=== PATIENT | female | born 1980 | race Caucasian/White ===

== ENCOUNTER 2020-04-06 12:33 | Outpatient (CLI) | payer OTHER, SELFPAY ==
--- NOTE | ~2020-04-06 | XR_ITS ---
EXAMINATION: XR lumbar spine 2-3V DATE: 04/06/2020 13:18 INDICATION: Right hip pain. TECHNIQUE: 3 views of lumbar spine were obtained. COMPARISON: None. FINDINGS: There is 3 degrees dextrocurvature of thoracolumbar spine. Vertebral body heights and inter vertebral disc heights are normal. The facet joints are unremarkable. IMPRESSION: 1. No etiology for the patient's symptoms. Reviewed, dictated and finalized at location A.
--- NOTE | ~2020-04-06 | XR_ITS ---
EXAMINATION: XR hip RT min 2V DATE: 04/06/2020 13:18 INDICATION: Right hip pain. TECHNIQUE: 3 views of right hip were obtained. COMPARISON: None. FINDINGS: Bone alignment is normal. No acute fracture. There is an old healed subcapital fracture of right femoral neck. There are old pin tracks in proximal right femur. There is mild right hip osteoar thritis. IMPRESSION: 1. Mild right hip osteoarthritis. Reviewed, dictated and finalized at location A.
[2020-04-06 14:20] LABS: Hematocrit 37.9 % (37.0-47.0); Mean Corpuscular HGB Conc 34.3 g/dl (32-36); Mean Corpuscular Hemoglobin 30.8 pg (26-34); Mean Corpuscular Volume 89.8 fl (80-100); Mean Platelet Volume 10.2 fl (7.4-10.4); Platelet Count Result 200 k/mm3 (150-375); Red Blood Count 4.22 M/mm3 (4.2-5.4); Red Cell Distribution Width 12.3 % (11.5-14.5); White Blood Count 4.5 K/mm3 (4.5-10.0)
[2020-04-06 14:34] LABS: CRP < 0.5 mg/dL (<1.0)
[2020-04-06 15:02] LABS: Iron 84 ug/dL (37-170)
[2020-04-06 15:12] LABS: Percent Iron Saturation 35 % (20-50)
== END 2020-04-06 12:34 | disposition home or self-care (01) ==
PROVIDERS: PCP Emergency Medicine; Visit Provider Emergency Medicine
DX: E61.1 Iron deficiency (principal); M54.31 Sciatica, right side; M16.11 Unilateral primary osteoarthritis, right hip
CPT/HCPCS: 36415; 72100; 73502; 82728; 83540; 83550; 85027; 86140

== ENCOUNTER 2022-02-03 18:19 | Emergency (ER) | payer OTHER, SELFPAY ==
--- NOTE | ~2022-02-03 | XR_ITS ---
EXAM: XR hand RT min 3V HISTORY: 02/03/22 PORCEL[place] CANDLE FELL ONTOP OF HAND. PAIN. COMPARISON: None available FINDINGS: Normal mineralization. No fracture or dislocation. No lytic or blastic lesion. Joint space s maintained. No erosion or periosteal change. Soft tissues within normal limits. IMPRESSION: No acute osseous finding in the right hand. Reviewed, dictated and finalized at location K.
[2022-02-03 18:30] VITALS: BP 136/94; PULSE 72; RESP 18; TEMP 37.1; O2SAT 98
--- NOTE | 2022-02-03 19:07 | ED.UPPEXIN ---
HPI - Extremity Injury (Upper) General Chief Complaint: Extremity Injury, Upper Stated Complaint: Right Hand Injury Time Seen by Provider: 02/03/22 18:55 Source: patient, RN notes reviewed and old records reviewed Mode of arrival: ambulatory Limitations: no limitations History of Present Illness HPI narrative: 41-year-old female who presents to [facility] with complaints of injury to her right anterior arm and dorsal hand near first metacarpal region with some mild swelling. Patient states large porcelain candle came down off of the shelf and hit the top of her right hand with pain mainly to the first metacarpal region. Patient has stated pain with any movement of her right hand, right wrist has strong radial pulse,nails have brisk capillary refill.Ice applied toright hand for comfort measure. MD complaint: injury to: right, forearm and hand Onset (ago): minute(s) Place: home Related Data Home Medications Medication Instructions Recorded Confirmed buspirone 15 mg PO DAILY 02/03/22 02/03/22 tizanidine 4 mg PO DAILY 02/03/22 02/03/22 trazodone 150 mg PO DAILY 02/03/22 02/03/22 Allergies Allergy/AdvReac Type Severity Reaction Status Date / Time acetaminophen Allergy Unknown Hives / Verified 02/03/22 19:22 Red Face Review of Systems Review of Systems: CONSTITUTIONAL: Denies fever, chills, or sweats. EYES: Denies visual changes, redness, or discharge. ENT: Denies rhinorrhea, congestion, sore throat, or otalgia. CARDIOVASCULAR: Denies chest pain, palpitations, or edema. RESPIRATORY: Denies cough or dyspnea. GASTROINTESTINAL: Denies abdominal pain, nausea, vomiting, or diarrhea. GENITOURINARY: Denies dysuria or hematuria. SKIN: Denies rash or itching. MUSCULOSKELETAL: Denies back pain,pain to right hand, or myalgia. NEUROLOGIC: Denies headache, numbness, or weakness. PSYCHIATRIC:Positive for history of anxiety or depression. All systems reviewed & are unremarkable except as noted in HPI and below PMFSH Past Medical History Medical History Anxiety Encounter for tubal ligation Fusion of spine, cervical region C6-7 Hip fracture, right Surgical History Surgical History H/O shoulder surgery History of carpal tunnel release History of endometrial ablation History of right oophorectomy Previous section X2 Family History Family History Grandparent Family history of mental disorder Hypertension Family history of heart disease in male family member before age 55 Mother Family history of mental disorder Depression Father Hypertension Other Family history of cardiovascular disease Social History Social History Smoking status: Former smoker Alcohol intake: never Comments At time of signature, agree with nursing past medical, surgical, social and family history. There is no relevant family history pertinent to the presenting complaint Exam Narrative: GENERAL: Well-appearing, well-nourished, and in no acute distress. HEAD: Normocephalic, atraumatic. EYES: PERRLA and EOMI. ENT: Nares clear, no rhinorrhea or epistaxis. Mucous membranes moist.TM's normal with good light reflex, throat pink with no lesions or exudates or tonsil swelling NECK: Supple.no lymphadenopathy CHEST: Clear to auscultation. No respiratory distress. HEART: Regular rate and rhythm. No murmur heard. Normal peripheral pulses. ABDOMEN: Soft, nontender, nondistended, normal active bowel sounds. EXTREMITIES: Normal range of motion. No edema.Pain to dorsal aspect of right hand belowalong first metacarpal with sensation and circulation intact, increased pain with movement,minimal swelling noted. SKIN: Warm, dry, no rash. NEURO: No focal deficits. Alert and oriented x3. Course Course Level of Care: [place]
== END 2022-02-03 20:15 | disposition home or self-care (01) ==
PROVIDERS: Emergency Provider Registered Nurse
DX: S60.221A Contusion of right hand, initial encounter (principal); W20.8XXA Other cause of strike by thrown, projected or falling object, initial encounter; F41.9 Anxiety disorder, unspecified
CPT/HCPCS: 73130; 99213; G0463